=== PATIENT | male | born 1975 | race Caucasian/White ===

== ENCOUNTER 2023-06-03 19:07 | Outpatient (REF) | payer BC, SELFPAY ==
[2023-06-03 19:50] LABS: HCT 45.1 % (40.0-50.0); HGB 15.4 g/dL (13.5-17.5); MCH 29.3 pg (27.0-33.0); MCHC 34.1 % (32.0-36.0); MCV 86 fL (80-95); MPV 10.2 fL (8.0-11.0); Platelet Count 275 10^3/uL (130-400); RBC 5.26 10^6/uL (4.36-5.78); RDW 12.1 % (11.8-14.1); RDW-SD 38.2 fL; WBC 6.83 10^3/uL (4.4-10.8)
[2023-06-03 20:31] LABS: ALT 41 U/L (16-63); AST 16 U/L (15-37); Albumin 4.2 g/dL (3.4-5.0); Alkaline Phosphatase 53 U/L (46-116); Anion Gap 7.5 mmol/L (3-11); BUN 15 mg/dL (7-18); Bilirubin, Total 0.6 mg/dL (0.2-1.0); CO2 29.5 mmol/L (21.0-32.0); Calcium 8.9 mg/dL (8.5-10.1); Chloride 104 mmol/L (98-107); Estimated GFR 93.42 (mL/min/1.73m2); Glucose 93 mg/dL (74-106); Potassium 4.1 mmol/L (3.5-5.1); Sodium 141 mmol/L (136-145); TSH (W/Ref FT4) 1.91 uIU/mL (0.36-3.74); Total Protein 7.4 g/dL (6.4-8.2); Vitamin B12 304 pg/mL (193-986)
== END 2023-06-03 19:08 | disposition home or self-care (01) ==
LOC: NCHCN 19:07
PROVIDERS: PCP Nurse Practitioner Family; Visit Provider Nurse Practitioner Family
DX: R53.83 Other fatigue (principal); G47.20 Circadian rhythm sleep disorder, unspecified type
CPT/HCPCS: 80053; 85027; 82607; 84443

== ENCOUNTER 2024-03-15 08:14 | Day surgery (SDC) | payer BC, SELFPAY ==
--- NOTE | 2024-03-14 13:00 | W.PM.DSUDISC ---
Date of service: 03/15/24 Time of Service: 09:37 Discharge Plan Disposition Patient Disposition: Home Condition: Good Discharge Details Reason For Visit: screening colonoscopy Attending Provider: Andres Alarcon Primary Care Provider: MADISON JACKSON Home Meds and New Rx's Prescriptions: Continued lisdexamfetamine [Vyvanse] 50 mg capsule 50 mg PO DAILY cetirizine 10 mg tablet 10 mg PO DAILY PRN epinephrine [EpiPen] 0.3 mg/0.3 mL auto-injector 0.3 mg IM ONCE Rx Instructions: as a single dose; may repeat once montelukast [Singulair] 10 mg tablet 10 mg PO DAILY Discontinued bisacodyl [Dulcolax (bisacodyl)] 5 mg tablet,delayed release (DR/EC) 5 mg PO ONCE Qty: 4 0RF polyethylene glycol 3350 17 gram/dose powder 17 g PO DAILY Qty: 238 0RF Discharge Instructions Instructions: Colorectal Polyps (GEN) Additional Instructions: Kirill, we were able to complete your colonoscopy today without any difficulty. Your prep was excellent, and I could see everything just fine. I do see 1 small area of tissue that was slightly abnormal appearing. I think it is polyp, but it in fact might be totally normal tissue. Regardless, I did remove this just to be safe. I will send it off to the pathologist to have them tested. If it does sheet turner to be a polyp, then I will influence the timing of your next colonoscopy. If it is normal tissue, then you should plan for colonoscopy in 10 years. Once my office has the results, we will be in touch with the final recommendation. I will be have a great day and if you need anything and I will give you a call. 1. If tolerated, consume a soft, low fiber diet for 1-2 days. 2. Do not drive, drink alcohol, operate machinery, make critical decisions, or do activities that require coordination or balance for 24 hours. 3. Because air was put into your colon during the procedure, expelling air from your rectum (passing gas or farting) is normal. 4. You may not have a bowel movement for 1-3 days because of the colonoscopy prep. This is normal. 5. Go directly to the emergency room if you notice any of the following: Develop chills (warm to touch), or if you have a thermometer and your temperature is above 101 Difficulty breathing or difficultly swallowing Persistent vomiting Severe abdominal pain, other than gas cramps Severe chest pain Black, tarry stools Any bleeding ? exceeding one tablespoon 6. Call your physician if the site where your intravenous was started becomes red, swollen, painful, and warm to touch. 7. Your physician has reviewed your pre-procedure medications. Please continue to take those medications as previously ordered. You will be given specific information/education regarding any changes to your medications before leaving. Activity:: Activity as Tolerated Diet:: As Tolerated Discharge Orders Discharge Orders: Discharge Order (Routine); Ordered 03/14/24 Ordered By: Andres Alarcon DS: Diagnosis Discharge Diagnosis (1) Encounter for screening colonoscopy: Status: Acute Asessment and Plan: Follow-up on polypectomy results
--- NOTE | 2024-03-14 13:01 | W.COLOREPORT ---
Date of service: 03/15/24 Time of Service: 09:39 Colonoscopy Report Date of procedure: 03/15/24 Pre-op diagnosis general: screening colonoscopy Post-op diagnosis procedure note: other (Colon polyp) Procedure: colonoscopy with polypectomy Surgeon: Andres Alarcon Anesthesia Type: General:No Airway Estimated blood loss (mL): 3 Pathology: other (0.25 cm flat polyp at 25 cm from the anus) Complications: None Disposition: same day Indications: Иван is a 48 year old man who needs a screening colonoscopy Prep: Miralax/Dulcolax Procedure Start Time: 09:20 Procedure End Time: 09:32 Retraction Time: 7 Findings: 0.25 cm flat polyp at 25 cm from the anus Procedure Description: After the induction of monitored anesthetic care, and with the patient in left lateral decubitus position, I began by performing an external anorectal exam.? Perineum and skin were normal, as was the anal verge.? There was no evidence of external hemorrhoids.? Next, I performed a digital rectal exam.? I did not appreciate any abnormal findings.? Next, I advanced a colonoscope into the rectal vault.? I performed retroflexion.? This was normal.? Using insufflation, I then advanced the colonoscope beyond the rectal folds and into the sigmoid colon before advancing towards the cecum.? The scope was noted to be in the cecum by identification of the ileocecal valve and appendiceal orifice.? I then began withdrawing the colonoscope using repeated irrigation as necessary for full evaluation of the colonic mucosa. Around 25 cm from the anal verge I identified a 0.25 cm polyp. ?It appeared flat in character. ?I was able to remove this with a cold forcep polypectomy. ?I examined the site, and there was minimal bleeding. ?Once this was completed, I continued to withdraw the scope and examine the remainder of the colonic mucosa.?Once the scope was withdrawn to the level of the rectum, great care was taken to examine portions of the rectal folds.? Finally, the scope was withdrawn and the patient was brought to the same-day surgery recovery unit as the anesthetic wore off. ?The findings and instructions were shared with the patient prior to discharge. Barton Bowel Prep Barton Bowel Prep Right Colon: 3 Left Colon: 3 Transverse Colon: 3 Total Score: 9
[2024-03-15 08:39] VITALS: BP 130/83; PULSE 78; RESP 18; TEMP 36.5; O2SAT 99
[2024-03-15] MEDS: Lactated Ringers 1,000 ML 80 ML IV (08:42)
--- NOTE | 2024-03-15 09:02 | W.ANESPRE ---
General Info Date of Service Date Performed: 03/15/24 Height: 6 ft Weight: 77.6 kg Body Mass Index (BMI): 23.2 Surgical Procedure: Operation Date: 03/15/24 10:35 Proposed Procedure Side Surgeon p Colonoscopy Andres Alarcon MD Actual Procedure Side Surgeon p Colonoscopy Not Applicable Andres Alarcon MD Pre-Op Diagnosis Post-Op Diagnosis screening colonoscopy Meds Allergies and Home Medications Allergies Allergy/AdvReac Type Severity Reaction Status Date / Time horses Allergy Intermediate Anaphylaxis Uncoded 03/15/24 08:20 trees Allergy Mild runny nose Uncoded 03/15/24 08:20 Home Medication Medication Instructions Recorded cetirizine 10 mg tablet 10 mg PO DAILY PRN 11/26/23 epinephrine 0.3 mg/0.3 mL 0.3 mg IM ONCE 11/26/23 injection, auto-injector (EpiPen) montelukast 10 mg tablet 10 mg PO DAILY 11/26/23 (Singulair) lisdexamfetamine 50 mg capsule 50 mg PO DAILY 03/04/24 (Vyvanse) Current Visit Medications: Current Medications Generic Name Dose Route Start Last Admin Trade Name Freq PRN Reason Stop Dose Admin Hyoscyamine Sulfate 0.125 mg 03/14/24 13:02 Hyoscyamine 0.125 Mg Sl/Oral/Chew SL 04/13/24 13:01 DIRECTED PRN Ringer's Solution 1,000 mls @ 80 mls/hr 03/15/24 06:00 03/15/24 08:42 IV 04/11/24 23:59 80 mls/hr INFUSION ANITA Administration IV Miscellaneous Supplies 1 each 03/15/24 06:00 Iv Access IV 04/11/24 23:59 DIRECTED ANITA Ondansetron HCl 4 mg 03/14/24 13:02 Ondansetron 4 Mg/2 Ml Vial IVP 04/13/24 13:01 Q4H PRN PRN Nausea / Vomiting Sodium Chloride 0 ml 03/15/24 06:00 Normal Saline Flush 10 Ml Syr IV 04/11/24 23:59 PRN PRN Sodium Chloride 0 ml 03/15/24 06:00 Normal Saline 10 Ml Vial IJ 04/11/24 23:59 DIRECTED PRN Sterile Water 0 ml 03/15/24 06:00 Water,Injection,Sterile 10 Ml Vial IJ 04/11/24 23:59 DIRECTED PRN PFSH Active Problems Active Problems: Problem Status Onset Code Encounter for screening colonoscopy Z12.11 Seasonal allergies J30.2 Metatarsalgia, left foot M77.42 Chronic fatigue R53.82 Sleep pattern disturbance G47.20 Chronic left shoulder pain M25.512, G89.29 Tobacco Smoking/Tobacco Use Status: Never Alcohol Alcohol Intake: current Alcohol intake frequency: a few times a week Substance Use Substance use: Occasionally Substance use type: marijuana Details: Tincture Vital Signs and Lab Results Vital Signs Most Recent Vital Signs in EMR: Most Recent Vital Signs Temp Pulse Resp BP Pulse Ox 36.5 C 78 18 130/83 99 03/15/24 08:39 03/15/24 08:39 03/15/24 08:39 03/15/24 08:39 03/15/24 08:39 Lab Results Blood Type / Crossmatch: No Data to Display Complete Blood Count: No Data to Display Complete Metabolic Panel: No Data to Display Liver Function Panel: No Data to Display Coagulation Panel: No Data to Display Cardiac Panel: No Data to Display Arterial Blood Gas: No Data to Display Venous Blood Gas: No Data to Display Pancreas Panel: No Data to Display Thyroid Panel: No Data to Display Infectious Disease: No Data to Display Blood Cultures: No Data to Display Toxicology Panel: No Data to Display Anesthesia Assessment and Plan Anesthesia History Personal History: No History of General Anesthesia Family History: No Family History of Anesthesia Complications Exercise Tolerance Exercise Tolerance: Metabolic Equivalents>4 Pertinent Negatives Pertinent Negatives: No Symptoms of GERD, No Major Cardiovascular Symptoms or Complaints, No Major Pulmonary Symptoms or Complaints and No History of CVA/TIA Cardiac & Pulmonary Exam Cardiac Exam: Normal S1/S2 Heart Sounds Pulmonary Exam: Clear Bilateral Breath Sounds Implantable Cardiac Device Does patient have a Pacemaker or an ICD?: No Airway Exam Known Difficult Airway: No Mallampati Class: 2 Mouth Opening: Normal (> 3cm) Thyromental Distance: Greater than 3 cm Neck Range of Motion: Full ROM Neck Circumference: Normal Teeth Condition: Normal Dentition ASA Classification ASA Score: ASA 2 Emergency Case?: No NPO Status NPO Status: NPO Clears >2 hours, Solids >8 hours Anesthesia Plan Resuscitation Status: Full Code Anesthesia Technique: General Anesthesia Airway Planned: Natural Airway Monitors Used: Standard Monitors
[2024-03-15 09:06] VITALS: BMI 23.2
--- NOTE | 2024-03-15 09:30 | BOWEL_PTH ---
PATIENT: Иван Gong LOC: [facility] U#:[id number] AGE/SX: 48/M ROOM: RE03/15/[address]: Andres Alarcon MD : 1975 BED: DIS: 03/15/2024 SPEC #: [id number] RECD: 03/15/24 12:55 STATUS: PATRICE REQ #: [id number] LISETTE: 03/15/24 09:[address]: Andres Alarcon DEPT: Surgical Specimen RECD BY: Aurea Davis ENTERED: 03/15/24 12:55 SP TYPE: Bowel OTHR DR: MADISON JACKSON NP Tissues: 1 - BIOPSY BOWEL Procedures: GROSS AND MICRO LEVEL 4 Comments: [id number]
[2024-03-15 09:38] VITALS: BP 104/76; PULSE 86; RESP 16; TEMP 36.8; O2SAT 96
--- NOTE | 2024-03-15 09:39 | W.ANESPOSTOP ---
Postoperative Evaluation Date, Time and Location Date Performed: 03/15/24 Time Performed: 09:39 Patient Location: Day Surgery Unit Vital Signs Most Recent Imported Vital Signs: Most Recent Vital Signs Temp Pulse Resp BP Pulse Ox 36.8 C 86 16 104/76 96 03/15/24 09:38 03/15/24 09:38 03/15/24 09:38 03/15/24 09:38 03/15/24 09:38 Pain Score Most Recent Pain Score: Most Recent Pain Score Pain Level 0 03/15/24 09:38 Assessment Mental Status: Awake (Alert & Oriented to Patient Baseline) Airway and Respiratory Function: Patent airway with normal (patient baseline) respiratory exam Cardiovascular Function: Hemodynamically Stable Hydration Status: Adequately Hydrated Nausea & Vomiting: No Nausea or Vomiting Pain: Pt. Denies Any Pain Peripheral Nerve Block: Patient did not receive a nerve block
[2024-03-15 09:52] VITALS: BP 120/90; PULSE 68; RESP 16; TEMP 36.6; O2SAT 98
== END 2024-03-15 10:05 | disposition home or self-care (01) ==
LOC: SUR 08:16
PROVIDERS: PCP Nurse Practitioner Family; Visit Provider Surgery
PROC: 0DJD8ZZ Inspection of Lower Intestinal Tract, Via Natural or Artificial Opening Endoscopic (ICD-10-PCS; CPT 45378; principal; 2024-03-15 10:30)
DX: Z12.11 Encounter for screening for malignant neoplasm of colon (principal); K63.5 Polyp of colon
CPT/HCPCS: 45380; 88305; J2001; J2704

== ENCOUNTER → 2024-03-25 04:15 | Outpatient (CLI) | payer BC, SELFPAY ==
--- NOTE | 2024-03-25 06:45 | DI.RAD_ITS ---
Exam(s) XR FOOT LT COMPLETE EXAM: XR FOOT LT COMPLETE CLINICAL HISTORY: Left foot pain,M79.672. TECHNIQUE: 2D digital imaging was performed. COMPARISON: No exams were available for comparison FINDINGS: 3 views No evidence of fracture or diastasis of the Lisfranc joint. Great toe metatarsophalangeal joint appears unremarkable as do the other articulations of left foot. Bone density normal. No osseous lesions. No inferior calcaneal spur. IMPRESSION: No significant osseous findings in the left foot. DATA REPOSITORY: RADIATION DOSE DELIVERED:
== END ==
PROVIDERS: PCP Nurse Practitioner Family; Visit Provider Podiatrist
DX: M79.672 Pain in left foot (principal)
CPT/HCPCS: 73630

== ENCOUNTER 2024-05-05 14:06 | Outpatient (CLI) | payer BC, SELFPAY ==
--- NOTE | 2024-05-05 13:45 | DI.RAD_ITS ---
Exam(s) XR SHOULDER RT COMPLETE 2+V EXAM: XR SHOULDER RT COMPLETE 2+V CLINICAL HISTORY: RIGHT SHOULDER PAIN. TECHNIQUE: 2D digital imaging was performed. COMPARISON: No exams were available for comparison FINDINGS: Two views. No evidence of fracture or dislocation nor abnormal soft tissue calcifications. Subacromial space ap pears unremarkable. There are no degenerative changes in the glenohumeral joint. Coracoid process a ppears unremarkable Bone density normal. No osseous lesions. IMPRESSION: No significant radiograph findings on these two views of the right shoulder. DATA REPOSITORY: RADIATION DOSE DELIVERED:
== END 2024-05-05 14:07 | disposition home or self-care (01) ==
LOC: DIORS 14:06
PROVIDERS: PCP Nurse Practitioner Family; Visit Provider Student in an Organized Health Care Education/Training Program
DX: M25.511 Pain in right shoulder (principal)
CPT/HCPCS: 73030

== ENCOUNTER 2024-05-20 06:16 | Day surgery (SDC) | payer BC, SELFPAY ==
[2024-05-20 06:26] VITALS: BP 118/82; PULSE 71; RESP 16; TEMP 37.1; O2SAT 95
[2024-05-20] MEDS: Lactated Ringers 1,000 ML 30 ML IV (06:47)
--- NOTE | 2024-05-20 07:02 | W.ANESPRE ---
General Info Date of Service Date Performed: 05/20/24 Height: 6 ft Weight: 78.1 kg Body Mass Index (BMI): 23.3 Surgical Procedure: Operation Date: 05/20/24 07:40 Proposed Procedure Side Surgeon p Shoulder Manipulation Right Sha Camacho MD Meds Allergies and Home Medications Allergies Allergy/AdvReac Type Severity Reaction Status Date / Time horses Allergy Intermediate Anaphylaxis Uncoded 05/19/24 12:06 trees Allergy Mild runny nose Uncoded 05/19/24 12:06 Home Medication ?Medication ?Instructions ?Recorded cetirizine 10 mg tablet 10 mg PO DAILY PRN 11/26/23 epinephrine 0.3 mg/0.3 mL 0.3 mg IM ONCE 11/26/23 injection, auto-injector (EpiPen) montelukast 10 mg tablet 10 mg PO DAILY 11/26/23 (Singulair) lisdexamfetamine 50 mg capsule 50 mg PO DAILY 03/04/24 (Vyvanse) Current Visit Medications: Current Medications Generic Name Dose Route Start Last Admin Trade Name Rinkuq PRN Reason Stop Dose Admin Ringer's Solution 1,000 mls @ 30 mls/hr 05/20/24 06:00 05/20/24 06:47 IV 05/20/24 23:59 30 mls/hr INFUSION ANITA Administration IV Miscellaneous Supplies 1 each 05/20/24 06:00 Iv Access IV 05/20/24 23:59 DIRECTED ANITA Sodium Chloride 0 ml 05/20/24 06:00 Normal Saline Flush 10 Ml Syr IV 05/20/24 23:59 PRN PRN Sodium Chloride 0 ml 05/20/24 06:00 Normal Saline 10 Ml Vial IJ 05/20/24 23:59 DIRECTED PRN Sterile Water 0 ml 05/20/24 06:00 Water,Injection,Sterile 10 Ml Vial IJ 05/20/24 23:59 DIRECTED PRN PFSH Active Problems Active Problems: Problem Status Onset Code Adhesive capsulitis of right shoulder Acute M75.01 Pain in left foot Acute M79.672 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 G57.62 Attention deficit hyperactivity disorder Acute F90.9 Encounter for screening colonoscopy Acute Z12.11 Seasonal allergies Acute J30.2 Metatarsalgia, left foot Acute M77.42 Chronic fatigue Acute R53.82 Sleep pattern disturbance Acute G47.20 Chronic left shoulder pain Acute M25.512, G89.29 Surgical History Surgical History History of colonoscopy (~03/2024) Tobacco Smoking/Tobacco Use Status: Never Alcohol Alcohol Intake: current Alcohol intake frequency: a few times a week Substance Use Substance use: Occasionally Substance use type: marijuana Vital Signs and Lab Results Vital Signs Most Recent Vital Signs in EMR: Most Recent Vital Signs Temp Pulse Resp BP Pulse Ox 37.1 C 71 16 118/82 95 05/20/24 06:26 05/20/24 06:26 05/20/24 06:26 05/20/24 06:26 05/20/24 06:26 Lab Results Blood Type / Crossmatch: No Data to Display Complete Blood Count: No Data to Display Complete Metabolic Panel: No Data to Display Liver Function Panel: No Data to Display Coagulation Panel: No Data to Display Cardiac Panel: No Data to Display Arterial Blood Gas: No Data to Display Venous Blood Gas: No Data to Display Pancreas Panel: No Data to Display Thyroid Panel: No Data to Display Infectious Disease: No Data to Display Blood Cultures: No Data to Display Toxicology Panel: No Data to Display Anesthesia Assessment and Plan Anesthesia History Personal History: No History of Anesthesia Complications Family History: No Family History of Anesthesia Complications Exercise Tolerance Exercise Tolerance: Metabolic Equivalents>4 Pertinent Negatives Pertinent Negatives: No Symptoms of GERD, No Major Cardiovascular Symptoms or Complaints, No Major Pulmonary Symptoms or Complaints and No History of CVA/TIA Cardiac & Pulmonary Exam Cardiac Exam: Normal S1/S2 Heart Sounds Pulmonary Exam: Clear Bilateral Breath Sounds Implantable Cardiac Device Does patient have a Pacemaker or an ICD?: No Airway Exam Known Difficult Airway: No Mallampati Class: 2 Mouth Opening: Normal (> 3cm) Thyromental Distance: Greater than 3 cm Neck Range of Motion: Full ROM Neck Circumference: Normal Teeth Condition: Normal Dentition ASA Classification ASA Score: ASA 2 Emergency Case?: No NPO Status NPO Status: NPO Clears >2 hours, Solids >8 hours Anesthesia Plan Resuscitation Status: Full Code Anesthesia Technique: General Anesthesia Airway Planned: Natural Airway Pain Management: Surgeon and patient request nerve block Monitors Used: Standard Monitors
[2024-05-20 07:07] VITALS: BMI 23.3
--- NOTE | 2024-05-20 07:13 | W.PM.DSUDISC ---
Date of service: 05/20/24 Time of Service: 08:00 Discharge Plan Disposition Patient Disposition: Home Discharge Details Attending Provider: Sha Camacho Primary Care Provider: MADISON JACKSON Home Meds and New Rx's Prescriptions: New naproxen 250 mg tablet 250 - 500 mg PO BID PRNQty: 40 0RF Rx Instructions: take with a meal oxycodone 5 mg tablet 5 - 10 mg PO Q4H MDD 30 mg PRN (Reason: moderate to severe pain) Qty: 12 0RF Continued lisdexamfetamine [Vyvanse] 50 mg capsule 50 mg PO DAILY cetirizine 10 mg tablet 10 mg PO DAILY PRN epinephrine [EpiPen] 0.3 mg/0.3 mL auto-injector 0.3 mg IM ONCE Rx Instructions: as a single dose; may repeat once montelukast [Singulair] 10 mg tablet 10 mg PO DAILY Discharge Instructions Additional Instructions: Surgery: Right shoulder manipulation under anesthesia Activity: Encourage increasing range of motion. Perform daily stretching exercises. Resume physical therapy tomorrow. Prescriptions: Naproxen 250 mg take 1-2 every 12 hours with a meal as needed for moderate pain Oxycodone 5 mg take 1-2 every 4-6 hours as needed for severe pain You may use [id number] Tylenol (acetaminophen) as needed for mild pain. These pain medications may be taken all at once or in different combinations as needed. Also, recommend Colace (docusate) as a stool softener as surgery and pain medicine cause constipation. You may try [id number] diphenhydramine (Benadryl) 25-50 mg nightly as a sleep aid Dressings: None Follow-up: 10-[address] Camacho You may take off the leg compression stockings this evening at home. You may also leave them on a few days longer if you have a history of leg swelling or edema. Let us know right away if you develop any redness, drainage, fevers, chest pain, or trouble breathing. Do not drink alcohol or drive for at least 24 hours after anesthesia. Please call the office during business hours with any questions or concerns. DS: Diagnosis Discharge Diagnosis (1) Adhesive capsulitis of right shoulder: Status: Acute
--- NOTE | 2024-05-20 07:16 | W.PM.OP ---
Date of service: 05/20/24 Time of Service: 07:30 Operative Note Operative Note DATE OF PROCEDURE: 05/20/24 PRE-OP DIAGNOSIS: Right shoulder stiffness PROCEDURE: Right shoulder manipulation under anesthesia, CPT #41834 SURGEON: Sha Camacho ANESTHESIA TYPE: General LMA/ETT and Primary Nerve Block Refer to Anesthesia Record ESTIMATED BLOOD LOSS: 0 COMPLICATIONS: None Patient was transported to: same day Patient's condition: stable Indications: Please see complete medical record for details. Findings: Excellent release of adhesions, no instability Procedure Description: In the operating room, general anesthesia was induced. The patient was positioned supine on the stretcher. Preoperative antibiotics were omitted. The correct patient, procedure, and side of the procedure were all verified prior to beginning. The right shoulder was examined with range of motion about 90 degrees forward elevation and 0 degrees external rotation at the side. Internal rotation at about 80 degrees 35 degrees, abduction about to 80 degrees. These endpoints had relatively firm, stiff feel. A short lever arm and gradual to steady gentle pressure was used to perform the manipulation initially going gently and steadily into forward elevation for most of the release and then alternating between external rotation at the side, forward elevation, and abduction with internal and external rotation. Deliberately gradually and carefully excellent releases were felt in forward elevation and external rotation. Less release needed in abduction and internal rotation. Range of motion was then tested and full. All endpoints were gently exaggerated. The shoulder joint remained stable. While the patient remained under anesthesia, all directions were stretched and repeated numerous times. The patient awoke from anesthesia without complication and was transferred to the recovery room in a stable condition.
[2024-05-20 07:17] VITALS: BP 117/82; PULSE 76; RESP 16; TEMP 37.1; O2SAT 95
--- NOTE | 2024-05-20 07:25 | W.ANESNERVE ---
Nerve Block Single Injection Procedure Date and Time Date Performed: 05/20/24 Procedure Start: 07:17 Location Where Procedure Performed Procedure Location: Day Surgery Unit Reason Performed: Postoperative Analgesia Requesting Provider: Sha Camacho Timeout Performed Timeout Performed: Yes Monitoring Used ECG, Blood Pressure and SpO2 Sterility Sterility: Hand Hygiene, Surgical Cap, Surgical Mask, Sterile Gloves, Sterile Drape/Sheet and Chlorhexidine Sedation Given During Procedure Sedation Given (Indicate Dose Given): Versed IV Dose:: 2 mg Patient Mental Status Patient Mental Status: Sedate with meaningful communication Nerve Block 1st Nerve Block: Laterality: Right Block Type: Interscalene Ultrasound Image Saved?: Yes Needle / Catheter Used: 100mm SonoPlex II Local Anesthetic Bolus (Indicate Dose Given): Lidocaine used for local infiltration of skin, Injected in 3-5ml increments after negative blood aspiration, Bupivacaine 0.25% Dose:: 10 ml and Exparel Dose:: 10 ml Additives (Indicate Dose Given): None Ultrasound: Sterile probe cover and gel used Nerve Stimulator: Supplement to Ultrasound use and No twitch or parasthesia noted < 0.5 mA Paresthesia: None Procedure Tolerated: No Complications and Patient tolerated well Procedure Outcome: Successful Performed By: Yuridia Donaldson
[2024-05-20 07:50] VITALS: BP 112/77; PULSE 84; RESP 15; TEMP 37; O2SAT 95
--- NOTE | 2024-05-20 07:57 | W.ANESPOSTOP ---
Postoperative Evaluation Date, Time and Location Date Performed: 05/20/24 Time Performed: 07:57 Patient Location: Day Surgery Unit Vital Signs Most Recent Imported Vital Signs: Most Recent Vital Signs Temp Pulse Resp BP Pulse Ox 37.0 C 84 15 112/77 95 05/20/24 07:50 05/20/24 07:50 05/20/24 07:50 05/20/24 07:50 05/20/24 07:50 Pain Score Most Recent Pain Score: Most Recent Pain Score Pain Level 0 05/20/24 06:26 Assessment Mental Status: Awake (Alert & Oriented to Patient Baseline) Airway and Respiratory Function: Patent airway with normal (patient baseline) respiratory exam Cardiovascular Function: Hemodynamically Stable Hydration Status: Adequately Hydrated Nausea & Vomiting: No Nausea or Vomiting Pain: Pt. Denies Any Pain Peripheral Nerve Block: Regional nerve block not resolved at time of post operative discharge
[2024-05-20 08:10] VITALS: BP 124/83; PULSE 64; RESP 16; O2SAT 96
== END 2024-05-20 08:40 | disposition home or self-care (01) ==
PROVIDERS: PCP Nurse Practitioner Family; Visit Provider Student in an Organized Health Care Education/Training Program
PROC: (CPT 23700; principal; 2024-05-20 07:30)
DX: M75.01 Adhesive capsulitis of right shoulder (principal)
CPT/HCPCS: 23700; 76942; C9290; J0665; J1885; J2001; J2250; J2405; J2704

== ENCOUNTER 2024-10-14 14:47 | Outpatient (REF) | payer BC, SELFPAY ==
[2024-10-14 20:52] LABS: Anion Gap 8.5 mmol/L (3-11); BUN 14 mg/dL (7-18); CO2 29.5 mmol/L (21.0-32.0); Calcium 9.2 mg/dL (8.5-10.1); Calculated LDL 136 mg/dL (<100); Chloride 104 mmol/L (98-107); Cholesterol 206 mg/dL (<200); Estimated GFR 92.26 (mL/min/1.73m2); Glucose 78 mg/dL (74-106); HDL Cholesterol 57 mg/dL (40-60); Potassium 4.2 mmol/L (3.5-5.1); Sodium 142 mmol/L (136-145); Triglyceride 67 mg/dL (<150)
[2024-10-15 19:08] LABS: Hepatitis C Ab w Rflx HCV PCR Negative (Negative)
== END 2024-10-14 14:48 | disposition home or self-care (01) ==
LOC: NCHCN 14:47
PROVIDERS: PCP Nurse Practitioner Family; Visit Provider Nurse Practitioner Family
DX: Z00.00 Encounter for general adult medical examination without abnormal findings (principal)
CPT/HCPCS: 80048; 80061; 86803

== ENCOUNTER → 2025-10-21 00:10 | Outpatient (CLI) | payer OTHER, SELFPAY ==
--- NOTE | 2025-10-21 13:30 | DI.RAD_ITS ---
Exam(s) XR RIBS RT W PA LAT CHEST EXAM: XR RIBS RT W PA LAT CHEST CLINICAL HISTORY: R07.89 Other chest pain,Rib pain RT side TECHNIQUE: 2D digital imaging was performed.Six images were obtained. COMPARISON: No exams were available for comparison FINDINGS: MEDIASTINUM: Normal. HEART: Normal. PULMONARY VASCULATURE: Normal. LUNGS: Clear. PLEURAL SPACE: No pleural effusion or pneumothorax. BONE:Normal. RIGHT RIBS: Normal. OTHER FINDINGS:Normal. IMPRESSION: 1. No acute pulmonary findings. 2. Unremarkable right ribs. DATA REPOSITORY: RADIATION DOSE DELIVERED:
== END ==
PROVIDERS: PCP Nurse Practitioner Family; Visit Provider Physician Assistant Medical
DX: R07.89 Other chest pain (principal)
CPT/HCPCS: 71046; 71100